=== PATIENT | female | born 1955 | race Caucasian/White ===

== ENCOUNTER 2019-10-15 08:38 | Outpatient (CLI) | payer OTHER, SELFPAY ==
--- NOTE | 2019-10-15 08:49 | EST_ITS ---
Patient Info Name: Denae Mahan Age: 64 years : 1955 Gender: Female Ht: 61 in Wt: 233 lbs BSA: 2.20 m2 Exam Date: 10/15/2019 9:08 AM Exam Location: [facility] Stress Patient Status: Outpatient Admit Date: 10/15/2019 Staff Ordering Physician: Petr Bennett DO Attending Provider: Petr Bennett DO Exercise Technologist: Violette Knox RDCS Exercise Physician: Aaron Bansal DO Exam Type: CA stress test treadmill Study Info Indications R53.83 - Other fatigue A treadmill exercise stress test was performed. Summary 1. 1. Negative Juan J exercise stress test for ischemic ST changes by ECG criteria. 2. 2. Poor functional capacity, achieving 4 METs of workload. 3. 3. Rapid HR response to exercise. 4. 4. Appropriate HR recovery at 1 minute post exercise. 5. 5. No imaging with stress testing. 6. 6. Patient informed of the above results. Protocol: Juan J Stress ECG Details Stage: REST Duration (min): 9 min : 0 sec Speed (mph): 0.0 Grade (%): 0 HR (bpm): 70 SBP (mmHg): 118 DBP (mmHg): 55 METS: --- Stage: REST Duration (min): 11 min : 29 sec Speed (mph): 0.0 Grade (%): 0 HR (bpm): 82 SBP (mmHg): 118 DBP (mmHg): 55 METS: --- Stage: STAGE 1 Duration (min): 1 min : 0 sec Speed (mph): 1.7 Grade (%): 10 HR (bpm): 111 SBP (mmHg): 118 DBP (mmHg): 55 METS: --- Stage: STAGE 1 Duration (min): 2 min : 0 sec Speed (mph): 1.7 Grade (%): 10 HR (bpm): 137 SBP (mmHg): 118 DBP (mmHg): 55 METS: --- Stage: STAGE 1 Duration (min): 2 min : 14 sec Speed (mph): 1.7 Grade (%): 10 HR (bpm): 140 SBP (mmHg): 118 DBP (mmHg): 55 METS: --- Stage: RECOVERY Duration (min): 0 min : 45 sec Speed (mph): 0.0 Grade (%): 0 HR (bpm): 134 SBP (mmHg): 167 DBP (mmHg): 56 METS: --- Stage: RECOVERY Duration (min): 1 min : 45 sec Speed (mph): 0.0 Grade (%): 0 HR (bpm): 114 SBP (mmHg): 167 DBP (mmHg): 56 METS: --- Stage: RECOVERY Duration (min): 2 min : 45 sec Speed (mph): 0.0 Grade (%): 0 HR (bpm): 101 SBP (mmHg): 183 DBP (mmHg): 50 METS: --- Stage: RECOVERY Duration (min): 3 min : 45 sec Speed (mph): 0.0 Grade (%): 0 HR (bpm): 94 SBP (mmHg): 183 DBP (mmHg): 50 METS: --- Stage: RECOVERY Duration (min): 4 min : 45 sec Speed (mph): 0.0 Grade (%): 0 HR (bpm): 88 SBP (mmHg): 183 DBP (mmHg): 50 METS: --- Stage: RECOVERY Duration (min): 5 min : 45 sec Speed (mph): 0.0 Grade (%): 0 HR (bpm): 86 SBP (mmHg): 175 DBP (mmHg): 47 METS: --- Stage: RECOVERY Duration (min): 6 min : 45 sec Speed (mph): 0.0 Grade (%): 0 HR (bpm): 87 SBP (mmHg): 118 DBP (mmHg): 51 METS: --- Stage: RECOVERY Duration (min): 6 min : 57 sec Speed (mph): 0.0 Grade
== END 2019-10-15 08:39 | disposition home or self-care (01) ==
LOC: ANHCARD 08:38
PROVIDERS: PCP Internal Medicine; Visit Provider Internal Medicine
DX: R53.83 Other fatigue (principal)
CPT/HCPCS: 93017

== ENCOUNTER → 2020-06-06 18:12 | Outpatient (CLI) | payer OTHER, SELFPAY ==
--- NOTE | ~2020-06-06 | MM_ITS ---
EXAMINATION: MM screening [facility] BI w sabiha HISTORY: Screening mammogram TECHNIQUE: Craniocaudal and mediolateral oblique 3-D tomosynthesis images were obtained and synthetic 2-D images were generated. CAD analysis was submitted and interpreted. COMPARISON: 10/24/2018, 08/03/2015, 04/15/2014 BREAST PARENCHYMAL COMPOSITION: There are scattered areas of fibroglandular density. FINDINGS: There is no evidence of suspicious mass, calcification, or architectural distortion to sugg est malignancy in either breast. There has been no suspicious interval change. IMPRESSION: 1. No mammographic evidence of malignancy. 2. Recommend routine screening mammography in one year. BI-RADS Category 1: Negative Reviewed, dictated and finalized at location A.
== END ==
PROVIDERS: PCP Internal Medicine; Visit Provider Nurse Practitioner Obstetrics & Gynecology
DX: Z12.31 Encounter for screening mammogram for malignant neoplasm of breast (principal)
CPT/HCPCS: 77063; 77067